=== PATIENT | female | born 1970 | race Two or more races ===

== ENCOUNTER 2017-09-12 17:04 | Emergency (ER) | payer MEDICARE, MEDICAID ==
[~2017-09-12] VITALS: Ht 170.2 cm; Wt 68.2 kg
[~2017-09-12 17:04] MED LIST: ACET1TAB12 PO; COU5T PO; ERGO500014 PO; HYDR-565 PO; HYDR200T84 PO; MIANS NS; MYCO250C46 PO; PANT-47 PO; POLY17PO10 PO; PRED1TAB PO; ZOC5T PO
[2017-09-12 17:22] VITALS: BP 129/36
[2017-09-12] MEDS ORDERED: proparacaine 0.5% ophthalmic drops 15ml EACHEYE ONE (17:30)
[2017-09-12] MEDS ORDERED: benoxinate/fluorescein ophth drops 5ml bottle LEFTEYE ONE (17:35)
== END 2017-09-12 18:23 | disposition home or self-care (01) ==
LOC: ER 17:04
DX: H15.9 Unspecified disorder of sclera (principal); M32.9 Systemic lupus erythematosus, unspecified; Z86.718 Personal history of other venous thrombosis and embolism; Z86.711 Personal history of pulmonary embolism; Z88.2 Allergy status to sulfonamides; Z79.01 Long term (current) use of anticoagulants; Z79.899 Other long term (current) drug therapy
CPT/HCPCS: 99283

== ENCOUNTER 2018-10-31 10:54 | Day surgery (SDC) | payer MEDICARE, MEDICAID ==
[~2018-10-31] VITALS: Ht 170.2 cm; Wt 69.5 kg
[~2018-10-31 10:54] MED LIST changes: +HYDR-4353 PO; -HYDR-565 PO; +SIMV5TAB58 PO; -ZOC5T PO
[2018-10-31] MEDS ORDERED: normal saline 1000ml 1,000 ML IV PRN (11:15)
[2018-10-31] MEDS ORDERED: COU3T PO (11:18)
[2018-10-31] MEDS ORDERED: WARF1TAB PO (11:18)
[2018-10-31] MEDS ORDERED: CETI-102 PO (11:21)
[2018-10-31] MEDS ORDERED: CHOL10002 PO (11:21)
[2018-10-31] MEDS ORDERED: MAGN200T PO (11:21)
[2018-10-31] MEDS ORDERED: FAMO40TA7 PO (11:21)
[2018-10-31] MEDS ORDERED: MULT-1085 PO (11:21)
[2018-10-31] MEDS ORDERED: LACTC PO (11:21)
[2018-10-31 11:29] VITALS: BP 97/70
[2018-10-31] MEDS ORDERED: LIDOcaine 1% 30ml preserv. free vial SQ STA (11:40)
== END 2018-10-31 11:51 | disposition home or self-care (01) ==
LOC: SSTAY O 10:54
PROVIDERS: ATTEND Radiology Vascular & Interventional Radiology
DX: R59.0 Localized enlarged lymph nodes (principal); Z86.718 Personal history of other venous thrombosis and embolism; Z86.73 Personal history of transient ischemic attack (TIA), and cerebral infarction without residual deficits; Z79.01 Long term (current) use of anticoagulants
CPT/HCPCS: 36415; 76882; 85610; J3490; J7030